=== PATIENT | female | born 1980 | race Caucasian/White ===

== ENCOUNTER 2017-10-02 17:49 | Emergency (ER) | payer MEDICAID ==
[~2017-10-02] VITALS: Ht 167.6 cm; Wt 96.4 kg
[2017-10-02 18:04] VITALS: Ht 167.6 cm; Wt 96.4 kg
[2017-10-02] MEDS ORDERED: CIPRO500 MG PO (20:08)
[2017-10-02] MEDS ORDERED: HYDROCODON-ACE1 EAC7 PO (20:08)
[2017-10-02 20:17] VITALS: BP 145/78
== END 2017-10-02 20:17 | disposition home or self-care (01) ==
LOC: D.ER 17:49
DX: S91.332A Puncture wound without foreign body, left foot, initial encounter (principal); W45.0XXA Nail entering through skin, initial encounter; Y93.89 Activity, other specified; Y92.019 Unspecified place in single-family (private) house as the place of occurrence of the external cause

== ENCOUNTER 2017-12-11 12:46 | Emergency (ER) | payer MEDICAID ==
[~2017-12-11] VITALS: Ht 167.6 cm; Wt 97.3 kg
[~2017-12-11 12:46] MED LIST: CIPRO500 MG PO; HYDROCODON-ACE1 EAC7 PO
[2017-12-11 12:50] VITALS: Ht 167.6 cm; Wt 97.3 kg
[2017-12-11 13:26] VITALS: BP 122/64
== END 2017-12-11 13:27 | disposition home or self-care (01) ==
LOC: D.ER 12:46
DX: Z98.84 Bariatric surgery status (principal)